=== PATIENT | male | born 1990 | race Caucasian/White ===

== ENCOUNTER 2021-06-18 10:00 | Outpatient (CLI) | payer OTHER | END 2021-06-18 10:01 | disposition home or self-care (01) | LOC: DI 10:00 | PROVIDERS: ATTEND Family Medicine | DX: I07.1 Rheumatic tricuspid insufficiency (principal) | CPT/HCPCS: 93306 ==

== ENCOUNTER 2023-04-15 15:25 | Emergency (ER) | payer OTHER ==
--- NOTE | 2023-04-15 15:51 | XRAY Report ---
PROCEDURE: Chest 2V INDICATIONS: cough with shortness of breath TECHNIQUE: 2 views of the chest were acquired. COMPARISON: None. FINDINGS: Surgical changes and devices: None. Lungs and pleura: No pleural effusions or pneumothorax. Lungs are clear. Mediastinum: Mediastinal contours appear normal. Heart size is normal. Bones and chest wall: No suspicious bony lesions. Overlying soft tissues appear unremarkable. IMPRESSION: No acute cardiopulmonary process. No focal infiltrates are seen. Reviewed by: Garcia Woodall MD on 04/15/2023 2:50 PM [facility] Approved by: Garcia Woodall MD on 04/15/2023 2:50 PM [facility] Station ID: [id number]
[2023-04-15 16:06] VITALS: BP 139/101; O2SAT 97
[2023-04-15] MEDS ORDERED: AMOX/CLAV 875 MG/125 MG TABLET PO STA (18:00)
[2023-04-15] MEDS ORDERED: BENZONATATE 100 MG CAPSULE PO STA (18:01)
--- NOTE | 2023-04-15 18:05 | ED Physician Documentation ---
PD HPI URI - Stated complaint Stated Complaint: COUGH,CHEST CONGESTION - Chief complaint Chief Complaint: Resp - History obtained from History obtained from: Patient - Additional information Additional information: Patient is a 32-year-old male presenting for evaluation of cough and congestion that have been present for the past 2 months. Patient states that he feels like he will get better for a day and then Symptoms will come right back.He has had a lot of sinus congestion and reports having green discharge as well as green phlegm. He has taken a COVID test through the [facility] which was negative. No fevers. No chest pain or shortness of air. He does not smoke. He did recently travel to [place]. He reports that his kids have also been sick throughout the late fall but they have been getting better. Review of Systems Constitutional: denies: Fever Nose: reports: Congestion, Sinus pressure / pain Cardiac: denies: Chest pain / pressure Respiratory: reports: Cough. denies: Dyspnea GI: denies: Abdominal Pain PD PAST MEDICAL HISTORY - Past Medical History Past Medical History: No - Past Surgical History Past Surgical History: No - Present Medications Home Medications: Ambulatory Orders Medication Instructions Recorded Confirmed Amox/Clav 875/125 [Augmentin] 1 each PO Q12H #14 tablet 04/15/23 Benzonatate [Tessalon] 200 mg PO QID PRN #20 cap 04/15/23 Sodium Chloride [Saline Nasal 1 - 2 spr NS Q3HR PRN #88 ml 04/15/23 [place]] - Allergies Allergies/Adverse Reactions: Allergies Allergy/AdvReac Type Severity Reaction Status Date / Time No Known Drug Allergies Allergy Verified 04/15/23 15:38 - Social History Does the pt smoke?: No Smoking Status: Never smoker Does the pt drink ETOH?: Yes Does the pt have substance abuse?: No - Immunizations Immunizations are current?: Yes PD ED PE NORMAL - General General: Alert and oriented X 3, No acute distress, Well developed/nourished - HEENT HEENT: Atraumatic, Moist mucous membranes, Pharynx benign (No oral swelling, erythema or exudate), Other (Tenderness over bilateral maxillary sinuses with no overlying erythema or swelling) - Neck Neck: Supple, no meningeal sign - Cardiac Cardiac: RRR, Strong equal pulses - Respiratory Respiratory: No respiratory distress, Clear bilaterally - Derm Derm: Warm and dry - Neuro Neuro: Normal speech Results - Vitals Vitals: Vital Signs - 24 hr 04/15/23 15:35 Temperature 36.2 C L Heart Rate 84 Respiratory 16 Rate Blood Pressure 139/101 H O2 Saturation 97 Oxygen O2 Source Room air PD Medical Decision Making - ED course Complexity details: reviewed results, d/w patient ED course: Patient is a 32-year-old male presenting for evaluation of cough and congestion that been ongoing for the past 2 months. He reports having sinus discomfort. He has tried [id number] medications without any improvement. Chest x-ray which I reviewed is negative for pneumonia. He has had an outpatient COVID test which has been negative. His vital signs are stable and his lung sounds are clear. Given his sinus symptoms for greater than 2 weeks we just discussed trial of antibiotics which she is agreeable to. Patient also given medications for his cough and encouraged to try saline sprays in the nose to help loosen congestion. He is advised to follow-up with the [facility] as well as concerning symptoms to return for. Departure - Departure Disposition: 01 Home, Self Care Clinical Impression: Sinusitis, Upper respiratory infection Condition: Stable Instructions: ED Sinusitis Abx Tx Follow-Up: [facility] [Provider Group] Prescriptions: Sodium Chloride [Saline Nasal [place]] 1 - 2 spr NS Q3HR PRN #88 ml PRN Reason: Nasal Congestion Amox/Clav 875/125 [Augmentin] 1 each PO Q12H #14 tablet Benzonatate [Tessalon] 200 mg PO QID PRN #20 cap PRN Reason: Cough Comments: Your chest x-ray is negative for pneumonia. Given the duration of your symptoms of sinus congestion, we have discussed a trial of antibiotics which may be helpful. I have sent a prescription for an antibiotic as well as a cough medication and saline nasal spray to [facility] in [place]. I would also recommend close follow-up with the [facility] if your symptoms or not improving. Return to the ER with any worsening symptoms such as fever, shortness of breath or any other concerns. Forms: PCP List
== END 2023-04-15 18:36 | disposition home or self-care (01) ==
LOC: ED 15:25
DX: J32.9 Chronic sinusitis, unspecified (principal); J06.9 Acute upper respiratory infection, unspecified
CPT/HCPCS: 71046; 99283; A9270